=== PATIENT | male | born 1960 ===

== ENCOUNTER 2024-01-27 18:51 | Inpatient (IN) | payer OTHER ==
[~2024-01-27] VITALS: Ht 152.4 cm; Wt 77.1 kg
[2024-01-27] MEDS ORDERED: LONSURF 15 MG-1 EACH (19:30)
[2024-01-27] MEDS ORDERED: ZOLOFT20 MG/1 ML (19:30)
[2024-01-27] MEDS ORDERED: SERTRALINE HCL100 MG PO (19:31)
[2024-01-27] MEDS ORDERED: PANTOPRAZOLE SO40 M2 (19:31)
[2024-01-27] MEDS ORDERED: CAMBIA50 MG (19:32)
[2024-01-27] MEDS ORDERED: CEFDINIR300 MG (19:32)
[2024-01-27] MEDS ORDERED: METRONIDAZOLE375 MG (19:32)
[2024-01-27] MEDS ORDERED: ATIVAN0.5 M1 (19:33)
[2024-01-27] MEDS ORDERED: GABAPENTIN100 M2 PO (19:33)
[2024-01-27] MEDS ORDERED: FAMOTIDINE/PF 20 MG in 0.9 % SODIUM CHLORIDE 8 ML IV PUSH SCH (20:11)
[2024-01-27] MEDS ORDERED: ACETAMINOPHEN 500 MG GEL..CAP PO PRN (20:15)
[2024-01-27] MEDS ORDERED: ONDANSETRON HCL 4 MG in 0.9 % SODIUM CHLORIDE 50 ML IV PRN (20:15)
[2024-01-27] MEDS ORDERED: 0.9 % SODIUM CHLORIDE 1,000 ML IV SCH (20:15)
[2024-01-27 21:15] LABS: HEMATOCRIT 24.3 % (39.0-48.0); MEAN CORPUSCULAR HGB CONC 32.8 g/dl (32.0-36.0); PLATELET COUNT 305 K/uL (150-450); RED BLOOD COUNT 3.04 M/uL (4.00-6.00); RED CELL DISTRIBUTION WIDTH 19.5 % (11.5-14.5)
[2024-01-27 21:19] LABS: MEAN CORPUSCULAR HEMOGLOBIN 26.3 pg (27.00-32.0)
[2024-01-27 21:36] LABS: INR 1.24; PROTHROMBIN TIME 12.8 SECONDS (9.0-11.5)
[2024-01-27 21:39] LABS: ALBUMIN 1.5 gm/dL (3.4-5.0); BILIRUBIN TOTAL 0.93 mg/dL (0.3-1.2); CALCIUM 8.4 mg/dL (8.5-10.1); CREATININE SERUM 1.75 mg/dL (0.70-1.30); GFR 39.31; GLOBULINA 5.5 G/DL (2.4-3.5); POTASSIUM 3.78 mEq/L (3.5-5.1)
[2024-01-27] MEDS ORDERED: CEFEPIME HCL 2,000 MG in 0.9 % SODIUM CHLORIDE 100 ML IV SCH (21:50)
[2024-01-27] MEDS ORDERED: GABAPENTIN 100 MG CAPSULE PO SCH (21:53)
[2024-01-27 21:55] LABS: ABG PH 7.435 (7.35-7.45); ABG PO2 91.2 mmHg (80-100); ABG pCO2 22.5 mmHg (35-45); BASE EXCESS -7.1 mmol/l; BICARBONATE 14.8 mmol/l (23-25); SaO2 97.2 %; Tco2 15.5 mmol/l
[2024-01-27 21:56] LABS: allen test SATISFACTORY; o2 21 %; puncture site RADIAL RIGHT
[2024-01-27] MEDS ORDERED: TRAMADOL HCL 50 MG TABLET PO PRN (22:00)
[2024-01-27 22:27] LABS: URINE APPEARANCE Turbid; URINE BILIRRUBIN Small (NEGATIVE); URINE BLOOD Large; URINE COLOR Dark Yellow; URINE GLUCOSE Negative (NEGATIVE); URINE LEUKOCYTE Large; URINE NITRATE Negative
[2024-01-27 22:30] LABS: URINE EPITHELIAL CELLS 43.1 uL (0.0-38.8); URINE RBC 30.3 uL (0.0-20.8); URINE WBC 4593.2 uL (0.0-23.2)
[2024-01-27 22:36] LABS: URINE BACTERIA > 9821.5 uL (0.0-1933); URINE PROTEIN 300 (NEGATIVE)
[2024-01-27 22:37] LABS: URINE CRYSTALS FEW /HPF
[2024-01-28] MEDS ORDERED: ENOXAPARIN SODIUM 40 MG/0.4 ML SYRINGE SUBCUTANEO SCH (09:00)
[2024-01-28] MEDS ORDERED: AMINO ACIDS/PROTEIN HYDROLYS 30 ML BLIST.PACK PO SCH (09:00)
[2024-01-28] MEDS ORDERED: SERTRALINE HCL 100 MG TABLET PO SCH (09:00)
[2024-01-28] MEDS ORDERED: MEROPENEM 500 MG/VIAL VIAL IV SCH (17:00)
[2024-01-29 15:52] LABS: HEMATOCRIT 28.7 % (39.0-48.0); HEMOGLOBIN 9.5 g/dL (13-16.00); MEAN CELL VOLUME 82.4 fL (80.0-100.00); MEAN CORPUSCULAR HEMOGLOBIN 27.4 pg (27.00-32.0); MEAN CORPUSCULAR HGB CONC 33.2 g/dl (32.0-36.0); PLATELET COUNT 249 K/uL (150-450); RED BLOOD COUNT 3.48 M/uL (4.00-6.00); RED CELL DISTRIBUTION WIDTH 19.3 % (11.5-14.5)
[2024-01-29 16:26] LABS: ALBUMIN 1.4 gm/dL (3.4-5.0); BILIRUBIN TOTAL 0.99 mg/dL (0.3-1.2); CALCIUM 7.8 mg/dL (8.5-10.1); CREATININE SERUM 0.95 mg/dL (0.70-1.30); GFR 79.56; GLOBULINA 4.9 G/DL (2.4-3.5); MAGNESIUM 1.5 mg/dL (1.8-2.4); PHOSPHOROUS 4.1 mg/dL (2.5-4.9); POTASSIUM 4.06 mEq/L (3.5-5.1); TOTAL PROTEIN 6.3 gm/dL (6.4-8.2)
[2024-01-29 16:40] LABS: C-REACTIVE PROTEIN 28.2 MG/DL (0.00-0.29)
[2024-01-29] MEDS ORDERED: ZINC OXIDE 30 GM,SILVER SULFADIAZINE 50 GM,NYSTATIN 30 GM TOP SCH (17:00)
[2024-01-29] MEDS ORDERED: BUPIVACAINE HCL/PF 0.5% 30ML ML ONE (17:35)
[2024-01-29] MEDS ORDERED: IOVERSOL 320 MG/ML - 50 ML VIAL IV ONE ×2 (17:35→19:15)
[2024-01-29] MEDS ORDERED: CHLORHEXIDINE GLUCONATE 120 ML BOTTLE TOP ONE ×2 (18:38→19:15)
[2024-01-29] MEDS ORDERED: BUPIVACAINE HCL 30 ML VIAL IJ ONE (19:15)
[2024-01-30 08:53] LABS: PH,URINE 5.5 (5.0-8.0); URINE APPEARANCE Turbid; URINE BILIRRUBIN Negative (NEGATIVE); URINE BLOOD Large; URINE COLOR Yellow; URINE GLUCOSE Negative (NEGATIVE); URINE LEUKOCYTE Large; URINE NITRATE Negative; URINE UROBILINOGEN 0.2 E.U./dl
[2024-01-30 08:58] LABS: URINE BACTERIA 1573.7 uL (0.0-1933); URINE EPITHELIAL CELLS 14.5 uL (0.0-38.8); URINE RBC 286.7 uL (0.0-20.8)
[2024-01-30] MEDS ORDERED: SODIUM HYPOCHLORITE 1OZ TOP SCH (09:00)
[2024-01-30] MEDS ORDERED: CHLORHEXIDINE GLUCONATE 120 ML BOTTLE TOP SCH (09:00)
[2024-01-30 10:41] LABS: URINE PROTEIN 100 (NEGATIVE)
[2024-01-30 10:42] LABS: URINE YEAST MODERATE /hpf
[2024-01-30 11:27] LABS: PROCALCITONIN 4.21 ng/ml (0.020-0.080)
[2024-01-30 11:41] LABS: CORTISOL 22.38 ug/dl
[2024-01-30] MEDS ORDERED: MEROPENEM 500 MG/VIAL VIAL IV SCH (18:00)
[2024-01-30] MEDS ORDERED: TEMAZEPAM 15 MG CAPSULE PO SCH (21:00)
[2024-01-31 04:10] LABS: HEMATOCRIT 31.8 % (39.0-48.0); HEMOGLOBIN 10.6 g/dL (13-16.00); MEAN CORPUSCULAR HEMOGLOBIN 27.3 pg (27.00-32.0); MEAN CORPUSCULAR HGB CONC 33.3 g/dl (32.0-36.0); PLATELET COUNT 273 K/uL (150-450); RED BLOOD COUNT 3.88 M/uL (4.00-6.00); RED CELL DISTRIBUTION WIDTH 19.1 % (11.5-14.5)
[2024-01-31 04:33] LABS: ALBUMIN 1.5 gm/dL (3.4-5.0); BILIRUBIN TOTAL 0.99 mg/dL (0.3-1.2); CALCIUM 8.2 mg/dL (8.5-10.1); CREATININE SERUM 0.74 mg/dL (0.70-1.30); GFR 106.15; GLOBULINA 5.2 G/DL (2.4-3.5); MAGNESIUM 1.5 mg/dL (1.8-2.4); PHOSPHOROUS 3.6 mg/dL (2.5-4.9); POTASSIUM 3.87 mEq/L (3.5-5.1); TOTAL PROTEIN 6.7 gm/dL (6.4-8.2)
[2024-01-31 04:37] LABS: C-REACTIVE PROTEIN 22.2 MG/DL (0.00-0.29)
[2024-01-31] MEDS ORDERED: ERTAPENEM1 GM IJ (07:24)
[2024-01-31] MEDS ORDERED: 0.9 % SODIUM CHLORIDE 10 ML VIAL IJ ONE (08:41)
[2024-01-31] MEDS ORDERED: fentaNYL CITRATE 50 MCG/ML AMPUL IV PUSH ONE (16:15)
[2024-02-02 08:51] LABS: ALBUMIN 1.6 gm/dL (3.4-5.0); BILIRUBIN TOTAL 1.01 mg/dL (0.3-1.2); CALCIUM 8.5 mg/dL (8.5-10.1); CREATININE SERUM 0.51 mg/dL (0.70-1.30); GFR 163.11; GLOBULINA 5.1 G/DL (2.4-3.5); MAGNESIUM 1.5 mg/dL (1.8-2.4); POTASSIUM 3.85 mEq/L (3.5-5.1); TOTAL PROTEIN 6.7 gm/dL (6.4-8.2)
[2024-02-03] MEDS ORDERED: APETIGEN P12.5 MG/15 PO (10:41)
[2024-02-03] MEDS ORDERED: CAMBIA50 MG PO (10:41)
[2024-02-03] MEDS ORDERED: FENTANYL1 EAC7 TD (10:41)
[2024-02-04] MEDS ORDERED: KETOROLAC TROMETHAMINE 30 MG VIAL IM ONE (08:00)
== END 2024-02-04 15:32 | disposition home or self-care (01) | DRG 871 ==
LOC: ER 18:51 → MEDJ 22:18
PROVIDERS: General Practice; Internal Medicine; Internal Medicine Infectious Disease; Radiology Vascular & Interventional Radiology; ADMIT Internal Medicine; ATTEND Internal Medicine
PROC: BW21ZZZ Computerized Tomography (CT Scan) of Abdomen and Pelvis (ICD-10-PCS; 2024-01-27)
PROC: 4A12X4Z Monitoring of Cardiac Electrical Activity, External Approach (ICD-10-PCS; 2024-01-28)
PROC: 30233N1 Transfusion of Nonautologous Red Blood Cells into Peripheral Vein, Percutaneous Approach (ICD-10-PCS; 2024-01-28)
PROC: 0T9330Z Drainage of Right Kidney Pelvis with Drainage Device, Percutaneous Approach (ICD-10-PCS; 2024-01-29)
PROC: 0T9430Z Drainage of Left Kidney Pelvis with Drainage Device, Percutaneous Approach (ICD-10-PCS; 2024-01-29)
PROC: 0T25X0Z Change Drainage Device in Kidney, External Approach (ICD-10-PCS; principal; 2024-01-29 18:30)
PROC: BW28ZZZ Computerized Tomography (CT Scan) of Head (ICD-10-PCS; 2024-01-30)
PROC: 0W9J3ZZ Drainage of Pelvic Cavity, Percutaneous Approach (ICD-10-PCS; 2024-01-31)
PROC: 02HV33Z Insertion of Infusion Device into Superior Vena Cava, Percutaneous Approach (ICD-10-PCS; 2024-02-02)
DX: A41.9 Sepsis, unspecified organism (principal); K65.1 Peritoneal abscess; N39.0 Urinary tract infection, site not specified; N17.9 Acute kidney failure, unspecified; E87.1 Hypo-osmolality and hyponatremia; C78.5 Secondary malignant neoplasm of large intestine and rectum; E86.0 Dehydration; N99.522 Malfunction of incontinent external stoma of urinary tract; B96.20 Unspecified Escherichia coli [E. coli] as the cause of diseases classified elsewhere; D64.9 Anemia, unspecified; E78.5 Hyperlipidemia, unspecified; N13.9 Obstructive and reflux uropathy, unspecified; I10 Essential (primary) hypertension